=== PATIENT | male | born 1985 | race Caucasian/White ===

== ENCOUNTER 2016-12-30 19:50 | Emergency (ER) | payer OTHER | END 2016-12-30 21:21 | disposition left against medical advice (07) | LOC: FER 19:50 | DX: H57.8 Other specified disorders of eye and adnexa (principal); Z53.8 Procedure and treatment not carried out for other reasons ==

== ENCOUNTER 2020-11-27 21:07 | Emergency (ER) | payer OTHER ==
[~2020-11-27 21:07] MED LIST: BENTYL10 MG PO; CYCLOBENZAPRINE10 MG PO; IBUPROFEN800 MG PO; MEDROL 4MG DOSEP4 MG PO; NAPROXEN500 MG PO; NORCO 5-325 TA1 EACH PO; PERCOCET 5-3251 EACH PO; ZOFRAN4 MG PO
== END 2020-11-28 01:10 | disposition home or self-care (01) ==
LOC: FER 21:07
DX: G89.11 Acute pain due to trauma (principal); M25.511 Pain in right shoulder; R20.2 Paresthesia of skin; F17.200 Nicotine dependence, unspecified, uncomplicated; W20.8XXA Other cause of strike by thrown, projected or falling object, initial encounter; Z88.0 Allergy status to penicillin
CPT/HCPCS: 73030; J1885; J7512

== ENCOUNTER 2021-01-11 15:55 | Emergency (ER) | payer OTHER ==
[2021-01-11] MEDS ORDERED: NORCO 5-325 TA1 EACH PO (20:57)
[2021-01-11] MEDS ORDERED: CEPHALEXIN500 MG PO (20:57)
== END 2021-01-11 21:48 | disposition home or self-care (01) ==
LOC: FER 15:55
DX: S80.211A Abrasion, right knee, initial encounter (principal); S80.812A Abrasion, left lower leg, initial encounter; S80.811A Abrasion, right lower leg, initial encounter; S60.511A Abrasion of right hand, initial encounter; L03.116 Cellulitis of left lower limb; L03.115 Cellulitis of right lower limb; Z88.0 Allergy status to penicillin; V86.55XA Driver of 3- or 4- wheeled all-terrain vehicle (ATV) injured in nontraffic accident, initial encounter; Y92.410 Unspecified street and highway as the place of occurrence of the external cause
CPT/HCPCS: 73590; 73600

== ENCOUNTER 2021-03-31 20:44 | Emergency (ER) | payer OTHER ==
[~2021-03-31 20:44] MED LIST changes: +CEPHALEXIN500 MG PO
[2021-03-31 21:22] LABS: BASOPHIL 1.1 % (0-2); EOSINOPHIL 2.9 % (0-5); HCT 35.8 % (42.0-52.0); HGB 12.7 g/dl (13.2-18.0); LYMPHOCYTE 33.3 % (15-48); MCH 30.9 pg (25.0-31.0); MCHC 35.5 g/dL (32.0-36.0); MCV 87.1 fL (78.0-100.0); MPV 9.7 fL (6.0-9.5); NEUTROPHIL 52.4 % (41-80); NRBC 0; PLT 314 K/uL (150-400); RBC 4.11 M/uL (4.70-6.00); RDW 13.6 % (11.5-14.0); WBC 11.4 K/uL (4.0-10.5)
[2021-03-31 21:35] LABS: ALBUMIN 3.8 g/dL (3.4-5.0); BILIRUBIN - TOTAL 0.5 mg/dL (0.2-1.0); BUN/CREAT RATIO (CALC) 15.7 RATIO; CREATININE 0.89 mg/dL (0.67-1.17); GLOBULIN (CALCULATION) 3.5 g/dL; POTASSIUM 3.7 mmol/L (3.5-5.1); TOTAL PROTEIN 7.3 g/dL (6.4-8.2)
[2021-03-31] MEDS ORDERED: CYCLOBENZAPRINE10 MG PO (23:19)
[2021-03-31] MEDS ORDERED: PERCOCET 5-3251 EACH PO (23:19)
[2021-03-31] MEDS ORDERED: IBUPROFEN800 MG PO (23:19)
[2021-03-31] MEDS ORDERED: MEDROL 4MG DOSEP4 MG PO (23:19)
== END 2021-04-01 00:15 | disposition home or self-care (01) ==
LOC: FER 20:44
PROVIDERS: Emergency Medicine Emergency Medical Services
DX: S20.212A Contusion of left front wall of thorax, initial encounter (principal); F17.210 Nicotine dependence, cigarettes, uncomplicated; Z88.0 Allergy status to penicillin; W22.8XXA Striking against or struck by other objects, initial encounter; Y93.H2 Activity, gardening and landscaping
CPT/HCPCS: 36415; 71045; 71260; 80053; 85025; 94010; J1100; J1170; J1885; J2405; Q9967

== ENCOUNTER 2021-04-22 08:55 | Emergency (ER) | payer OTHER ==
[2021-04-22 09:35] LABS: BASOPHIL 0.8 % (0-2); EOSINOPHIL 1.7 % (0-5); HCT 36.8 % (42.0-52.0); HGB 12.6 g/dl (13.2-18.0); MCH 29.4 pg (25.0-31.0); MCHC 34.2 g/dL (32.0-36.0); MCV 85.8 fL (78.0-100.0); MONOCYTE 10.8 % (0-12); MPV 9.3 fL (6.0-9.5); NEUTROPHIL 63.5 % (41-80); NRBC 0; PLT 280 K/uL (150-400); RBC 4.29 M/uL (4.70-6.00); RDW 13.7 % (11.5-14.0)
[2021-04-22 09:45] LABS: INR 1.2 (0.9-1.2); PROTHROMBIN TIME 14.6 SECONDS (11.8-13.4); PTT 27.5 SECONDS (24.4-34.7)
[2021-04-22 10:02] LABS: ALBUMIN 4.2 g/dL (3.4-5.0); BILIRUBIN - TOTAL 1.1 mg/dL (0.2-1.0); BUN/CREAT RATIO (CALC) 19.8 RATIO; CREATININE 1.16 mg/dL (0.67-1.17); GLOBULIN (CALCULATION) 3.4 g/dL; POTASSIUM 3.6 mmol/L (3.5-5.1); TOTAL PROTEIN 7.6 g/dL (6.4-8.2)
[2021-04-22] MEDS ORDERED: ONDANSETRON ODT4 MG PO (10:10)
== END 2021-04-22 10:40 | disposition home or self-care (01) ==
LOC: FER 08:55
PROVIDERS: Emergency Medicine
DX: F15.10 Other stimulant abuse, uncomplicated (principal); F17.200 Nicotine dependence, unspecified, uncomplicated; R11.2 Nausea with vomiting, unspecified
CPT/HCPCS: 36415; 80053; 83690; 85025; 85610; 85730; 99284; Q0162

== ENCOUNTER 2021-06-21 15:20 | Emergency (ER) | payer OTHER ==
[~2021-06-21 15:20] MED LIST changes: +ONDANSETRON ODT4 MG PO
== END 2021-06-21 17:53 | disposition home or self-care (01) ==
LOC: FER 15:20
DX: S93.601A Unspecified sprain of right foot, initial encounter (principal); Z88.0 Allergy status to penicillin; W19.XXXA Unspecified fall, initial encounter; X50.1XXA Overexertion from prolonged static or awkward postures, initial encounter; Y92.89 Other specified places as the place of occurrence of the external cause; Y99.0 Civilian activity done for income or pay
CPT/HCPCS: 73630